=== PATIENT | female | born 1945 ===

== ENCOUNTER 2017-04-17 09:51 | Emergency (ER) | payer MEDICARE ==
[2017-04-17 09:51] VITALS: BMI 19.7
[2017-04-17] MEDS ORDERED: Sodium Chloride 0.9% 1,000 ML IV STA (10:12)
--- NOTE | 2017-04-17 10:24 | ED PDOC ---
Arrival/HPI - General Chief Complaint: Flu-like Symptoms Time Seen by Provider: 04/17/17 10:03 Historian: Patient - History of Present Illness Narrative History of Present Illness (Text): 04/17/17 10:24 71yo female with PMHx of diverticulitis, hypertension and hypercholesterolemia who present with 2days history of general bodyache, fever, cough and generalized weakness. Did not take any medication for her symptoms. Denies sick contact, chest pain, SOB, nausea, vomiting, abdominal pain, any other complaint. She did not take the Flu vaccine. Past Medical History - Provider Review Nursing Documentation Reviewed: Yes - Infectious Disease Hx of Infectious Diseases: None - Tetanus Immunization Tetanus Immunization: Unknown - Cardiac Hx Cardiac Disorders: Yes (mi) Hx Hypertension: Yes Hx Pacemaker: No Other/Comment: angioplasty - Pulmonary Hx Respiratory Disorders: Yes Hx Asthma: Yes Hx Chronic Obstructive Pulmonary Disease (COPD): Yes - Neurological Hx Paralysis: No - HEENT Hx HEENT Disorder: Yes Hx Cataracts: Yes Hx Glaucoma: Yes - Renal Hx Renal Disorder: No - Endocrine/Metabolic Hx Endocrine Disorders: No - Hematological/Oncological Hx Blood Disorders: Yes Hx Blood Transfusions: Yes - Integumentary Hx Dermatological Disorder: No - Musculoskeletal/Rheumatological Hx Musculoskeletal Disorders: No Hx Falls: No - Gastrointestinal Hx Gastrointestinal Disorders: Yes Hx Diverticulitis: Yes - Genitourinary/Gynecological Hx Genitourinary Disorders: Yes (ectopic ) - Psychiatric Hx Psychophysiologic Disorder: No Hx Emotional Abuse: No Hx Physical Abuse: No Hx Substance Use: No - Surgical History Hx Cardiac Catheterization: Yes Hx Coronary Stent: Yes (x6 stents from 2001 to 2005) Other/Comment: Tummy Tuck, tubal ligation, hemorrhoidectomy - Anesthesia Hx Anesthesia: Yes - Suicidal Assessment Feels Threatened In Home Enviroment: No Family/Social History - Physician Review Nursing Documentation Reviewed: Yes Family/Social History: Unknown Family HX Smoking Status: Never Smoked Hx Alcohol Use: No Hx Substance Use: No Hx Substance Use Treatment: No Allergies/Home Meds Allergies/Adverse Reactions: Allergies iodine Allergy (Verified 04/17/17 09:52) RASH shrimp Allergy (Severe, Uncoded 04/17/17 09:52) SWELLING throat gets itchy Home Medications: Home Meds Medication Instructions Recorded Confirmed Aspirin [Aspir 81] 81 mg PO QPM 01/05/12 04/17/17 Montelukast [Singulair] 10 mg PO QPM 01/05/12 04/17/17 Simvastatin 40 mg PO QPM 01/05/12 04/17/17 Budesonide/Formoterol Fumarate 1 aer IH DAILY 08/01/12 04/17/17 [Symbicort 80-4.5 Mcg Inhaler] Dorzolamide 2% [Trusopt] 1 drop OU TID 08/01/12 04/17/17 Brimonidine 0.2% [Alphagan 0.2% 1 drop OU TID 11/24/15 04/17/17 Opht] Clopidogrel [Plavix] 75 mg PO DAILY 07/27/16 04/17/17 Review of Systems - Physician Review All systems were reviewed & negative as marked: Yes - Review of Systems Constitutional: Fatigue Eyes: Normal ENT: Normal Respiratory: Cough. absent: SOB, Sputum, Wheezing Cardiovascular: Normal Gastrointestinal: Normal Genitourinary Female: Normal Musculoskeletal: Normal Skin: Normal Neurological: Normal Endocrine: Normal Hemo/Lymphatic: Normal Psychiatric: Normal Physical Exam Vital Signs Reviewed: Yes Vital Signs Temp Pulse Resp BP Pulse Ox 04/17/17 11:29 100.8 F H 102 H 18 126/64 98 04/17/17 09:59 102.3 F H 126 H 17 128/62 97 Temperature: Febrile Blood Pressure: Normal Pulse: Tachycardic Respiratory Rate: Normal Appearance: Positive for: Well-Appearing, Non-Toxic, Comfortable Pain Distress: None Mental Status: Positive for: Alert and Oriented X 3 - Systems Exam Head: Present: Atraumatic, Normocephalic Pupils: Present: PERRL Extroacular Muscles: Present: EOMI Conjunctiva: Present: Normal Mouth: Present: Moist Mucous Membranes Neck: Present: Normal Range of Motion Respiratory/Chest: Present: Clear to Auscultation, Good Air Exchange. No: Respiratory Distress, Accessory Muscle Use, Wheezes, Decreased Breath Sounds, Rales, Retracting, Rhonchi Cardiovascular: Present: Regular Rate and Rhythm, Normal S1, S2. No: Murmurs Abdomen: Present: Normal Bowel Sounds. No: Tenderness, Distention, Peritoneal Signs Back: Present: Normal Inspection Upper Extremity: Present: Normal Inspection. No: Cyanosis, Edema Lower Extremity: Present: Normal Inspection. No: Edema Neurological: Present: GCS=15, CN II-XII Intact, Speech Normal Skin: Present: Warm, Dry, Normal Color. No: Rashes Psychiatric: Present: Alert, Oriented x 3, Normal Insight, Normal Concentration Medical Decision Making ED Course and Treatment: 04/17/17 11:12 Pt in ED for stated history. she was febirle and tachy on presentation. Antipyretic was given and pt was hydrated. On re evaluation she notes that she feels better. Rapid Flu was positive for type A and she was treated and DC home with Tamiflu. Advised to drink plenty of fluid. To take Tylenol every 6hrs as needed for fever/pain. referred to her PMD. - Lab Interpretations Lab Results: 04/17/17 10:20 Lab Results 04/17/17 10:20: Influenza Typ A,B (EIA) Pos for influenza a H 04/17/17 10:20: PT 12.6 H, INR 1.09 H, APTT 26.3 04/17/17 10:20: WBC 10.9, RBC 3.76, Hgb 12.2, Hct 37.4, MCV 99.5, MCH 32.4, MCHC 32.6, RDW 13.6, Plt Count 245, MPV 10.3, Gran % 77.5 H, Lymph % (Auto) 9.3 L, [place] % (Auto) 7.2 H, Eos % (Auto) 5.4 H, Baso % (Auto) 0.6, Gran # 8.45 H, Lymph # (Auto) 1.0 L, [place] # (Auto) 0.8 H, Eos # (Auto) 0.6, Baso # (Auto) 0.06 - Medication Orders Current Medication Orders: Discontinued Medications Acetaminophen (Tylenol 325mg Tab) 650 mg PO STAT STA Stop: 04/17/17 10:13 Last Admin: 04/17/17 10:37 Dose: 650 mg MAR Pain/Vitals Document 04/17/17 10:37 SF (Rec: 04/17/17 10:37 SF [id number]) Pain Reassessment Is This A Pain ReAssessment? Yes Sleep Is patient sleeping during reassessment? No Presence of Pain Presence of Pain Yes Pain Scale Used Pain Scale Used Numeric Sodium Chloride (Sodium Chloride 0.9%) 1,000 mls @ 999 mls/hr IV .Q1H1M STA Stop: 04/17/17 11:12 Last Admin: 04/17/17 10:37 Dose: 999 mls/hr eMAR Start Stop Document 04/17/17 10:37 SF (Rec: 04/17/17 10:37 SF [id number]) Intravenous Solution Start Date 04/17/17 Start Time 10:37 End Date 04/17/17 End time 11:38 Total Infusion Time 61 Oseltamivir Phosphate (Tamiflu Cap) 75 mg PO ONCE STA PRN Reason: Protocol Stop: 04/17/17 11:10 Last Admin: 04/17/17 11:30 Dose: 75 mg Disposition/Present on Arrival - Present on Arrival Any Indicators Present on Arrival: No History of DVT/PE: No History of Uncontrolled Diabetes: No Urinary Catheter: No History of Decub. Ulcer: No History Surgical Site Infection Following: None - Disposition Have Diagnosis and Disposition been Completed?: Yes Diagnosis: Influenza A Disposition: HOME/ ROUTINE Disposition Time: 11:15 Patient Plan: Discharge Condition: STABLE Discharge Instructions (ExitCare): Flu, Adult (DC) Additional Instructions: Drink plenty of fluid and rest Follow up with your doctor Return to ED for any new or worsening symptoms Prescriptions: Oseltamivir Phosphate [Tamiflu] 75 mg PO BID #10 capsule Referrals: [facility] Ольга Garza, [Non-Staff] - Follow up with primary Mary Roe MD [Primary Care Provider] - Follow up with primary Forms: [employer] (Spanish)
[2017-04-17 10:45] LABS: BASO # 0.06 K/mm3 (0.0-2.0); BASO % 0.6 % (0.0-3.0); EOS # 0.6 (0.0-0.7); EOS % 5.4 % (1.5-5.0); GRAN # 8.45 (1.4-6.5); GRAN % 77.5 % (50.0-68.0); HEMOGLOBIN 12.2 g/dL (12.0-16.0); LYMPH % 9.3 % (22.0-35.0); MEAN CELL VOLUME 99.5 fl (80.0-105.0); MEAN CORPUSCULAR HEMOGLOBIN 32.4 pg (25.0-35.0); MEAN CORPUSCULAR HGB CONC 32.6 g/dl (31.0-37.0); MEAN PLATELET VOLUME 10.3 fl (7.0-11.0); MONO # 0.8 (0.1-0.6); MONO % 7.2 % (1.0-6.0); RBC 3.76 10^6/uL (3.5-6.1); RED CELL DISTRIBUTION WIDTH 13.6 % (11.5-14.5); WHITE BLOOD COUNT 10.9 10^3/ul (4.5-11.0)
[2017-04-17 10:53] LABS: INR 1.09 (0.93-1.08); PARTIAL THROMBOPLASTIN TIME 26.3 Seconds (25.1-36.5); PROTHROMBIN TIME 12.6 SECONDS (9.4-12.5)
[2017-04-17 11:30] VITALS: BP 126/64; PULSE 102; RESP 18; TEMP 100.8; O2SAT 98
== END 2017-04-17 11:34 | disposition home or self-care (01) ==
LOC: ED 09:51
DX: J10.1 Influenza due to other identified influenza virus with other respiratory manifestations (principal); I10 Essential (primary) hypertension; E78.00 Pure hypercholesterolemia, unspecified
CPT/HCPCS: 85025; 85610; 85730; 87804; 96360; 99284; J7040

== ENCOUNTER 2017-04-18 17:17 | Emergency (ER) | payer MEDICARE ==
[2017-04-18 17:20] VITALS: BMI 20.1
--- NOTE | 2017-04-18 17:39 | ED PDOC ---
Arrival/HPI - General Chief Complaint: Syncope Time Seen by Provider: 04/18/17 17:27 Historian: Patient - History of Present Illness Narrative History of Present Illness (Text): 04/18/17 17:39 A 71 year old female, whose past medical history includes hypertension, hyperlipidemia, asthma and CAD with stents, presents to the emergency department accompanied by family after a syncopal episode earlier today. Patient reports while in the bathroom she felt dizzy and passed out falling backwards. She notes injuring her lower back. Patient was recently seen in the emergency room yesterday and diagnosed with the flu. Patient denies any other injuries, head trauma, headache, neck pain, abdominal pain, chest pain, shortness of breath or any other complaints. PMD: Dr. Roe Time/Duration: Other (today) Context: Home Past Medical History - Provider Review Nursing Documentation Reviewed: Yes - Infectious Disease Hx of Infectious Diseases: None - Tetanus Immunization Tetanus Immunization: Unknown - Cardiac Hx Cardiac Disorders: Yes (mi) Hx Hypertension: Yes Hx Pacemaker: No Other/Comment: angioplasty - Pulmonary Hx Respiratory Disorders: Yes Hx Asthma: Yes Hx Chronic Obstructive Pulmonary Disease (COPD): Yes - Neurological Hx Paralysis: No - HEENT Hx HEENT Disorder: Yes Hx Cataracts: Yes Hx Glaucoma: Yes - Renal Hx Renal Disorder: No - Endocrine/Metabolic Hx Endocrine Disorders: No - Hematological/Oncological Hx Blood Disorders: Yes Hx Blood Transfusions: Yes - Integumentary Hx Dermatological Disorder: No - Musculoskeletal/Rheumatological Hx Musculoskeletal Disorders: No Hx Falls: No - Gastrointestinal Hx Gastrointestinal Disorders: Yes Hx Diverticulitis: Yes - Genitourinary/Gynecological Hx Genitourinary Disorders: Yes (ectopic ) - Psychiatric Hx Psychophysiologic Disorder: No Hx Emotional Abuse: No Hx Physical Abuse: No Hx Substance Use: No - Surgical History Hx Cardiac Catheterization: Yes Hx Coronary Stent: Yes (x6 stents from 2001 to 2005) Other/Comment: Tummy Tuck, tubal ligation, hemorrhoidectomy - Anesthesia Hx Anesthesia: Yes - Suicidal Assessment Feels Threatened In Home Enviroment: No Family/Social History - Physician Review Nursing Documentation Reviewed: Yes Family/Social History: No Known Family HX Smoking Status: Never Smoked Hx Alcohol Use: No Hx Substance Use: No Hx Substance Use Treatment: No Allergies/Home Meds Allergies/Adverse Reactions: Allergies iodine Allergy (Verified 04/18/17 17:20) RASH shrimp Allergy (Severe, Uncoded 04/18/17 17:20) SWELLING throat gets itchy Home Medications: Home Meds Medication Instructions Recorded Confirmed Aspirin [Aspir 81] 81 mg PO QPM 01/05/12 04/18/17 Montelukast [Singulair] 10 mg PO QPM 01/05/12 04/18/17 Simvastatin 40 mg PO QPM 01/05/12 04/18/17 Budesonide/Formoterol Fumarate 1 aer IH DAILY 08/01/12 04/18/17 [Symbicort 80-4.5 Mcg Inhaler] Dorzolamide 2% [Trusopt] 1 drop OU TID 08/01/12 04/18/17 Brimonidine 0.2% [Alphagan 0.2% 1 drop OU TID 11/24/15 04/18/17 Opht] Clopidogrel [Plavix] 75 mg PO DAILY 07/27/16 04/18/17 Review of Systems - Physician Review All systems were reviewed & negative as marked: Yes - Review of Systems Respiratory: absent: SOB Cardiovascular: Syncope. absent: Chest Pain Gastrointestinal: absent: Abdominal Pain Musculoskeletal: Back Pain. absent: Neck Pain Neurological: Dizziness. absent: Headache Physical Exam Vital Signs Reviewed: Yes Vital Signs Temp Pulse Resp BP Pulse Ox 04/18/17 19:18 98.9 F 88 16 131/73 100 04/18/17 17:45 98.6 F 86 18 119/68 97 Temperature: Afebrile Blood Pressure: Normal Pulse: Regular Respiratory Rate: Normal Appearance: Positive for: Non-Toxic, Comfortable, Other (Thin and frail female, appears weak and mildly dehydrated) Pain Distress: None Mental Status: Positive for: Alert and Oriented X 3, other (fatigued) Finger Stick Blood Glucose: 109 - Systems Exam Head: Present: Atraumatic, Normocephalic Pupils: Present: PERRL Extroacular Muscles: Present: EOMI Conjunctiva: Present: Normal Mouth: Present: Dry Pharnyx: Present: Normal. No: ERYTHEMA, EXUDATE, TONSILS ENLARGED Neck: Present: Normal Range of Motion Respiratory/Chest: Present: Clear to Auscultation (in all lung mendez), Good Air Exchange. No: Respiratory Distress, Accessory Muscle Use Cardiovascular: Present: Regular Rate and Rhythm, Normal S1, S2. No: Murmurs Abdomen: Present: Normal Bowel Sounds. No: Tenderness, Distention, Peritoneal Signs, Rebound, Guarding Back: Present: Other (Area of bruising to right upper back with tenderness to palpation) Upper Extremity: Present: Normal Inspection. No: Cyanosis, Edema Lower Extremity: Present: Normal Inspection. No: Edema Neurological: Present: GCS=15, CN II-XII Intact, Speech Normal, Motor Func Grossly Intact, Normal Sensory Function, Other (no focal neurological deficits) . No: Gait Normal (requires assitance to ambulate) Skin: Present: Warm, Dry, Normal Color. No: Rashes Psychiatric: Present: Alert, Oriented x 3, Normal Insight, Normal Concentration , Other (fatigued) Medical Decision Making ED Course and Treatment: 04/18/17 17:39 Impression: A 71 year old female brought in after syncopal episode and fall. Patient notes back pain. Recently diagnosed with the flu. Plan: -- Right ribs xray -- EKG -- Labs -- Tylenol and IV fluids -- Reassess and disposition Progress Notes: 04/18/17 20:34 awake and alert; significantly improved.ambulatory. x-rays neg - Lab Interpretations Lab Results: 04/18/17 17:50 04/18/17 17:50 Lab Results 04/18/17 17:50: Sodium 139, Potassium 3.4 L, Chloride 99, Carbon Dioxide 27, Anion Gap 17, BUN 23 H, Creatinine 0.8, Est GFR ( Amer) > 60, Est GFR ( Non-Af Amer) > 60, Random Glucose 112 H, Calcium 9.3, Total Bilirubin 0.4, AST 40 H, ALT 28, Alkaline Phosphatase 76, Total Protein 8.2, Albumin 4.2, Globulin 4.0, Albumin/Globulin Ratio 1.0 L 04/18/17 17:50: WBC 9.3, RBC 3.81, Hgb 12.4, Hct 37.3, MCV 97.9, MCH 32.5, MCHC 33.2, RDW 13.9, Plt Count 241, MPV 10.7, Gran % 76.6 H, Lymph % (Auto) 13.6 L, [place] % (Auto) 9.2 H, Eos % (Auto) 0.3 L, Baso % (Auto) 0.3, Gran # 7.11 H, Lymph # (Auto) 1.3, [place] # (Auto) 0.9 H, Eos # (Auto) 0.0, Baso # (Auto) 0.03 I have reviewed the lab results: Yes - RAD Interpretation Radiology Orders: 04/18/17 17:40 RIBS RIGHT [RAD] Stat - Medication Orders Current Medication Orders: Discontinued Medications Acetaminophen (Tylenol 325mg Tab) 650 mg PO STAT STA Stop: 04/18/17 17:42 Last Admin: 04/18/17 17:57 Dose: 650 mg Sodium Chloride (Sodium Chloride 0.9%) 500 mls @ 999 mls/hr IV .Q31M STA Stop: 04/18/17 18:11 Last Admin: 04/18/17 17:57 Dose: 999 mls/hr eMAR Start Stop Document 04/18/17 17:57 CNR (Rec: 04/18/17 17:57 CNR [id number]) Intravenous Solution Start Date 04/18/17 Start Time 17:57 Sodium Chloride (Sodium Chloride 0.9%) 500 mls @ 999 mls/hr IV .Q31M STA Stop: 04/18/17 19:39 Last Admin: 04/18/17 19:18 Dose: 999 mls/hr eMAR Start Stop Document 04/18/17 19:18 AB (Rec: 04/18/17 19:19 AB [id number]) Intravenous Solution Start Date 04/18/17 Start Time 19:18 End Date 04/18/17 End time 19:48 Total Infusion Time 30 Potassium Chloride (K-Dur 20 Meq Er Tab) 20 meq PO STAT STA Stop: 04/18/17 19:02 Last Admin: 04/18/17 19:18 Dose: 20 meq Disposition/Present on Arrival - Present on Arrival Any Indicators Present on Arrival: No History of DVT/PE: No History of Uncontrolled Diabetes: No Urinary Catheter: No History of Decub. Ulcer: No History Surgical Site Infection Following: None - Disposition Have Diagnosis and Disposition been Completed?: Yes Diagnosis: Syncope and collapse, Influenza A Disposition: HOME/ ROUTINE Disposition Time: 20:40 Patient Plan: Discharge Condition: STABLE Discharge Instructions (ExitCare): Syncope (ED) Referrals: Mary Roe MD [Primary Care Provider] - Follow up with primary Forms: [employer] ([employer])
[2017-04-18] MEDS ORDERED: Sodium Chloride 0.9% 500 ML IV STA ×2 (17:41→19:09)
[2017-04-18 18:06] LABS: BASO # 0.03 K/mm3 (0.0-2.0); BASO % 0.3 % (0.0-3.0); EOS % 0.3 % (1.5-5.0); GRAN # 7.11 (1.4-6.5); GRAN % 76.6 % (50.0-68.0); HEMOGLOBIN 12.4 g/dL (12.0-16.0); LYMPH # 1.3 (1.2-3.4); LYMPH % 13.6 % (22.0-35.0); MEAN CELL VOLUME 97.9 fl (80.0-105.0); MEAN CORPUSCULAR HEMOGLOBIN 32.5 pg (25.0-35.0); MEAN CORPUSCULAR HGB CONC 33.2 g/dl (31.0-37.0); MEAN PLATELET VOLUME 10.7 fl (7.0-11.0); MONO # 0.9 (0.1-0.6); MONO % 9.2 % (1.0-6.0); RBC 3.81 10^6/uL (3.5-6.1); RED CELL DISTRIBUTION WIDTH 13.9 % (11.5-14.5); WHITE BLOOD COUNT 9.3 10^3/ul (4.5-11.0)
[2017-04-18 18:10] LABS: ALBUMIN 4.2 g/dL (3.0-4.8); ALT/SGPT 28 U/L (7-56); AST/SGOT 40 U/L (14-36); BLOOD UREA NITROGEN 23 mg/dL (7-21); CALCIUM 9.3 mg/dL (8.4-10.5); GFR AFRICAN-AMERICAN > 60; GFR NON-AFRICAN AMERICAN > 60
[2017-04-18] MEDS ORDERED: Potassium Chloride 20 mEq ER Tab PO STA (19:01)
[2017-04-18 20:22] VITALS: RESP 16
[2017-04-18 21:31] VITALS: BP 121/80; PULSE 80; TEMP 98.2; O2SAT 99
--- NOTE | 2017-04-19 11:12 | RAD ---
PROCEDURE: Right ribs HISTORY: fall COMPARISON: TECHNIQUE: Three views FINDINGS: There is no evidence of displaced rib fracture or pneumothorax IMPRESSION: Negative study
--- NOTE | 2017-04-19 22:42 | CARD ---
APPROVED REPORT EKG Measurement Heart [id number] <Conclusion> Normal sinus rhythm Right atrial enlargement Borderline ECG
== END 2017-04-18 21:31 | disposition home or self-care (01) ==
LOC: ED 17:17
DX: J09.X2 Influenza due to identified novel influenza A virus with other respiratory manifestations (principal); R55 Syncope and collapse; I10 Essential (primary) hypertension; I25.10 Atherosclerotic heart disease of native coronary artery without angina pectoris; E78.5 Hyperlipidemia, unspecified; Z95.5 Presence of coronary angioplasty implant and graft
CPT/HCPCS: 71100; 80053; 85025; 93005; 99285; J7040

== ENCOUNTER 2018-05-20 13:33 | Observation (INO) | payer MEDICARE ==
[2018-05-20 13:43] VITALS: BMI 19.5
--- NOTE | 2018-05-20 14:09 | ED PDOC ---
Arrival/HPI - General Historian: Patient - History of Present Illness Narrative History of Present Illness (Text): 05/20/18 14:09 72 year old female, whose past medical history includes hypertension, hyperlipidemia, asthma and CAD with stents, presents to the emergency department accompanied by family complaining of chest discomfort and headache that began today. Patient describes the chest discomfort as a pressure like sensation, but non-radiating. Patient reports she checked her blood pressure and noted that it was elevated, so she went to go see her PMD where she began developing chest discomfort. Patient's PMD Dr. Roe sent patient to the ER for evaluation. Patient takes aspirin daily, but ran out. Patient denies any fever, chills, shortness of breath, nausea, vomiting, diarrhea, urinary symptoms, back pain, neck pain, dizziness, or any other complaints. PMD: Dr. Roe Symptom Onset: Gradual Symptom Course: Unchanged Activities at Onset: Light Context: Home Past Medical History - Provider Review Nursing Documentation Reviewed: Yes - Infectious Disease Hx of Infectious Diseases: None - Tetanus Immunization Tetanus Immunization: Unknown - Cardiac Hx Cardiac Disorders: Yes - Pulmonary Hx Respiratory Disorders: Yes Hx Asthma: Yes Hx Chronic Obstructive Pulmonary Disease (COPD): Yes - Neurological Hx Paralysis: No - HEENT Hx HEENT Disorder: Yes Hx Cataracts: Yes Hx Glaucoma: Yes - Renal Hx Renal Disorder: No - Endocrine/Metabolic Hx Endocrine Disorders: No - Hematological/Oncological Hx Blood Disorders: Yes Hx Blood Transfusions: Yes - Integumentary Hx Dermatological Disorder: No - Musculoskeletal/Rheumatological Hx Musculoskeletal Disorders: No Hx Falls: No - Gastrointestinal Hx Gastrointestinal Disorders: Yes Hx Diverticulitis: Yes - Genitourinary/Gynecological Hx Genitourinary Disorders: Yes (ectopic ) - Psychiatric Hx Psychophysiologic Disorder: No Hx Emotional Abuse: No Hx Physical Abuse: No Hx Substance Use: No - Surgical History Hx Cardiac Catheterization: Yes Hx Coronary Stent: Yes (x6 stents from 2001 to 2005) Other/Comment: Tummy Tuck, tubal ligation, hemorrhoidectomy - Anesthesia Hx Anesthesia: Yes - Suicidal Assessment Feels Threatened In Home Enviroment: No Family/Social History - Physician Review Nursing Documentation Reviewed: Yes Family/Social History: No Known Family HX Smoking Status: Never Smoked Hx Alcohol Use: No Hx Substance Use: No Hx Substance Use Treatment: No Allergies/Home Meds Allergies/Adverse Reactions: Allergies iodine Allergy (Verified 05/20/18 14:08) RASH shrimp Allergy (Severe, Uncoded 05/20/18 14:08) SWELLING throat gets itchy Home Medications: Home Meds Medication Instructions Recorded Confirmed Aspirin [Aspir 81] 81 mg PO QPM 01/05/12 05/20/18 Montelukast [Singulair] 10 mg PO QPM 01/05/12 05/20/18 Simvastatin 40 mg PO QPM 01/05/12 05/20/18 Budesonide/Formoterol Fumarate 1 aer IH DAILY 08/01/12 05/20/18 [Symbicort 80-4.5 Mcg Inhaler] Brimonidine 0.2% [Alphagan 0.2% 1 drop OU TID 11/24/15 05/20/18 Opht] Clopidogrel [Plavix] 75 mg PO DAILY 07/27/16 05/20/18 Review of Systems - Physician Review All systems were reviewed & negative as marked: Yes - Review of Systems Constitutional: absent: Fevers, Other (chills) Respiratory: absent: SOB Cardiovascular: Chest Pain Gastrointestinal: absent: Diarrhea, Nausea, Vomiting Genitourinary Female: absent: Dysuria, Frequency, Hematuria Musculoskeletal: absent: Back Pain, Neck Pain Neurological: Headache. absent: Dizziness Physical Exam Vital Signs Reviewed: Yes Temperature: Afebrile Blood Pressure: Hypertensive Pulse: Regular Respiratory Rate: Normal Appearance: Positive for: Well-Appearing, Non-Toxic, Comfortable Pain Distress: None Mental Status: Positive for: Alert and Oriented X 3 - Systems Exam Head: Present: Atraumatic, Normocephalic Pupils: Present: PERRL Extroacular Muscles: Present: EOMI Conjunctiva: Present: Normal Mouth: Present: Moist Mucous Membranes Neck: Present: Normal Range of Motion Respiratory/Chest: Present: Clear to Auscultation, Good Air Exchange. No: Respiratory Distress, Accessory Muscle Use Cardiovascular: Present: Regular Rate and Rhythm, Normal S1, S2. No: Murmurs Abdomen: No: Tenderness, Distention, Peritoneal Signs Back: Present: Normal Inspection Upper Extremity: Present: Normal Inspection. No: Cyanosis, Edema Lower Extremity: Present: Normal Inspection. No: Edema Neurological: Present: GCS=15, Speech Normal Skin: Present: Warm, Dry, Normal Color. No: Rashes Psychiatric: Present: Alert, Oriented x 3, Normal Insight, Normal Concentration Medical Decision Making ED Course and Treatment: 05/20/18 14:09 Impression: 72 year old female presents complaining of chest pressure, elevated blood pressure, and headache that began today. Plan: -- EKG -- Labs -- Chest X-ray -- Reassess and disposition Prior Visits: Notes and results from previous visits were reviewed. Progress Notes: EKG shows NSR at 97 BPM with normal axis and normal intervals. Interpreted by me. Chest X-ray Dictator : Filomena Mcdowell MD Report Date : 05/20/2018 15:06:46 IMPRESSION: No active pulmonary disease. 05/20/18 15:[address] Roe who is aware and agrees with the plan. Accepts patient into her service. - Lab Interpretations I have reviewed the lab results: Yes - RAD Interpretation Radiology Orders: 05/20/18 13:50 CHEST PORTABLE [RAD] Stat Book Coverer: Radiologist - EKG Interpretation Interpreted by ED Physician: Yes Type: 12 lead EKG - Scribe Statement The provider has reviewed the documentation as recorded by the Karli Wilson Provider Scribe Attestation: All medical record entries made by the Johnibe were at my direction and personally dictated by me. I have reviewed the chart and agree that the record accurately reflects my personal performance of the history, physical exam, medical decision making, and the department course for this patient. I have also personally directed, reviewed, and agree with the discharge instructions and disposition. Disposition/Present on Arrival - Present on Arrival Any Indicators Present on Arrival: No History of DVT/PE: No History of Uncontrolled Diabetes: No Urinary Catheter: No History Surgical Site Infection Following: None - Disposition Have Diagnosis and Disposition been Completed?: Yes Diagnosis: Chest pain Disposition: HOSPITALIZED Disposition Time: 15:25 Condition: STABLE
[2018-05-20 14:36] LABS: BASO # 0.05 K/mm3 (0.0-2.0); BASO % 0.5 % (0.0-3.0); EOS # 2.9 (0.0-0.7); EOS % 31.2 % (1.5-5.0); HEMOGLOBIN 12.4 g/dL (12.0-16.0); LYMPH # 2.1 (1.2-3.4); MEAN CELL VOLUME 98.2 fl (80.0-105.0); MEAN CORPUSCULAR HEMOGLOBIN 31.4 pg (25.0-35.0); MEAN PLATELET VOLUME 10.2 fl (7.0-11.0); MONO # 0.6 (0.1-0.6); MONO % 6.4 % (1.0-6.0); PLATELET COUNT 273 10^3/uL (120.0-450.0); RBC 3.95 10^6/uL (3.5-6.1); RED CELL DISTRIBUTION WIDTH 13.3 % (11.5-14.5); WHITE BLOOD COUNT 9.2 10^3/uL (4.5-11.0)
[2018-05-20 14:51] LABS: ALB/GLOB RATIO 0.9 (1.1-1.8); ALBUMIN 3.9 g/dL (3.0-4.8); ALT/SGPT 14 U/L (7-56); AST/SGOT 24 U/L (14-36); BLOOD UREA NITROGEN 16 mg/dL (7-21); CALCIUM 9.3 mg/dL (8.4-10.5); GFR NON-AFRICAN AMERICAN > 60
[2018-05-20 15:02] LABS: ANISOCYTOSIS SLIGHT; ATYPICAL LYMPHOCYTE 2 % (0.0-0.0); BAND 1 % (0-2); BASOPHIL 1 % (0.0-1.0); EOSINOPHIL 22 % (0.0-3.0); LYMPHOCYTE 26 % (22.0-35.0); MONOCYTE 4 % (1.0-6.0); NEUTROPHIL 44 % (50.0-70.0); PLATELET ESTIMATE NORMAL (NORMAL)
[2018-05-20 15:03] LABS: B-TYPE NATRIURETIC PEPTIDE 144 pg/mL (0-450); TOXIC GRANULATION SLIGHT; TROPONIN I < 0.01 ng/mL
--- NOTE | 2018-05-20 15:10 | RAD ---
Date of service: 05/20/2018 HISTORY: Chest pain COMPARISON: 11/15/2017. FINDINGS: LUNGS: The lungs are well inflated and clear. There are fibrotic changes in the left upper lobe PLEURA: No pleural effusions or pneumothorax. CARDIOVASCULAR: The heart is normal in size. No aortic atherosclerotic calcifications present. OSSEOUS STRUCTURES: Within normal limits for the patient's age. VISUALIZED UPPER ABDOMEN: Normal. OTHER FINDINGS: None. IMPRESSION: No active pulmonary disease.
--- NOTE | 2018-05-20 19:19 | CARD ---
APPROVED REPORT Date of service: 05/20/2018 EKG Measurement Heart [id number] <Conclusion> Normal sinus rhythm Normal ECG
[2018-05-20] MEDS ORDERED: Albuterol 0.083% Inhal Sol (2.5 mg/3 mL) UD IH PRN (20:20)
[2018-05-20 20:43] LABS: IRON 102 ug/dL (45-180)
[2018-05-20 20:51] LABS: TOTAL IRON BINDING CAPACITY 300 ug/dL (265-497)
[2018-05-20 20:58] LABS: % IRON SATURATION 34 % (20-55)
[2018-05-20 21:55] LABS: HDL CHOLESTEROL 56 mg/dL (29-60)
--- NOTE | 2018-05-20 22:05 | CP.PCM.PCO ---
Addendum Addendum: 05/20/18 22:04 STAT doses of Home Lopressor and Zestril given for night dose, SBP in 170s CK PGY1
[2018-05-20 22:06] LABS: LDL CHOLESTEROL 148 mg/dL (0-129); TROPONIN I < 0.01 ng/mL
[2018-05-21 00:03] VITALS: RESP 20
[2018-05-21 06:19] VITALS: BP 143/82; TEMP 97.9; O2SAT 96
[2018-05-21 06:27] LABS: HEMOGLOBIN 12.7 g/dL (12.0-16.0); MEAN CORPUSCULAR HEMOGLOBIN 31.9 pg (25.0-35.0); MEAN CORPUSCULAR HGB CONC 32.2 g/dl (31.0-37.0); MEAN PLATELET VOLUME 10.1 fl (7.0-11.0); RBC 3.98 10^6/uL (3.5-6.1); RED CELL DISTRIBUTION WIDTH 13.3 % (11.5-14.5); WHITE BLOOD COUNT 9.7 10^3/uL (4.5-11.0)
[2018-05-21 07:05] LABS: BLOOD UREA NITROGEN 25 mg/dL (7-21); CALCIUM 9.4 mg/dL (8.4-10.5); GFR NON-AFRICAN AMERICAN > 60
[2018-05-21 09:54] LABS: TROPONIN I < 0.01 ng/mL
[2018-05-21 13:11] LABS: FOLATE 11.3 ng/mL
[2018-05-21] MEDS ORDERED: Albuterol-Ipratrop 3 mg / 0.5 (3 ml) UD IH PRN (13:44)
[2018-05-21] MEDS ORDERED: Petrolatum Oint Foilpak (5 gm) TOP SCH (14:00)
--- NOTE | 2018-05-21 14:56 | CON ---
DATE: 05/21/2018 PULMONARY CONSULT NOTE REFERRING PHYSICIAN: Mary Roe MD REASON FOR CONSULT: Asthma and sleep apnea. HISTORY OF PRESENT ILLNESS: This is a 72-year-old female with past medical history significant for hypertension, hyperlipidemia, asthma, coronary artery disease with stents who presented to the emergency room complaining of chest discomfort and headache. The patient reported chest discomfort as pressure like, but not radiating, also noted that she had elevated blood pressure associated with chest discomfort and headache. The patient states that she went to the primary care physician who sent her to the emergency room for evaluation. The patient also reports having some nasal congestion post nasal drip. Today the patient seen and states that she no longer has the chest discomfort or headache. PAST MEDICAL HISTORY: Chronic obstructive lung disease, coronary artery disease, history of coronary stents, hypertension, hyperlipidemia, asthma and obstructive sleep apnea syndrome. SOCIAL HISTORY: No EtOH abuse. No illicit drug use. Nonsmoker. FAMILY HISTORY: No significant cardiopulmonary disease reported. ALLERGIES: IODINE AND SHRIMP. MEDICATIONS: Reviewed. Albuterol 2.5 mg inhalation every 6 hours p.r.n., aspirin 81 mg in the evening, Lipitor 40 mg in the evening, Plavix 75 mg daily, lisinopril 10 mg daily, Claritin 10 mg daily, Lopressor 25 mg twice a day, Singulair 10 mg in the evening, Alphagan eye drop three times a day and Symbicort inhaler daily. REVIEW OF SYSTEMS: No headache, chest pain, abdominal pain, nausea, vomiting, diarrhea, leg pain or leg swelling reported. The patient no coughing, no shortness of breath at this time. The patient does report having both nasal drip, some nasal congestion. PHYSICAL EXAMINATION GENERAL: No acute distress. VITAL SIGNS: Blood pressure 143/82, pulse 71, temperature 97.9 and oxygen saturation 96% on room air. HEENT: Moist mucous membranes. Small oral cavity. Mallampati score of 4. NECK: Supple. No JVD. No facial tenderness. RESPIRATORY: Fair airflow bilaterally. CARDIOVASCULAR: S1 and S2. ABDOMEN: Soft and nontender. No distension. No organomegaly. EXTREMITIES: No bilateral lower extremity edema. NEUROLOGIC: Awake, alert and verbal. Following commands. LABORATORY DATA: Reviewed. WBC 9.7, RBC 3.98, hemoglobin 12.7, hematocrit 39.4 and platelets 290. Sodium 141, potassium 4.2, chloride 105, carbon dioxide 29, anion gap 12, BUN 25, creatinine 0.8, GFR greater than 60, random glucose 89 and calcium 9.4. Hemoglobin A1c 6.0. Iron 102, TIBC 300 and percent saturation 34. Lactate dehydrogenase 537 and total creatine kinase 77. Troponin less than 0.01. Triglycerides 156, cholesterol 270, LDL cholesterol 149 and HDL cholesterol 56. Vitamin B12 of 336, folate 11.3 and TSH 1.62. Chest x-ray shows no active pulmonary disease, shows fibrotic changes in the left upper lobe. EKG shows normal sinus rhythm. Echocardiogram report pending. IMPRESSION AND PLAN: The patient admitted with nonspecific chest pain, headache, has history of coronary artery disease status post stent placement, hypertension, hyperlipidemia, asthma and obstructive sleep apnea syndrome. We will discontinue Symbicort and start the patient on Brovana and Pulmicort with p.r.n. DuoNeb. We will place the patient on Protonix for gastric prophylaxis. We will place the patient on deep venous thrombosis prophylaxis. We will place the patient on continuous positive airway pressure at 7 cm with 30% oxygen while sleeping. We will add Flonase nasal spray to bilateral nostrils at bedtime. We will add normal saline to bilateral nostrils. We will start the patient on prednisone 20 mg daily and doxycycline twice a day for sinusitis. We will followup with echocardiogram report when it is available. Continue antihistamine and leukotriene inhibitors. Recommend the patient followup as outpatient for full pulmonary function test as well as followup for sleep apnea syndrome. This patient was seen and examined with Dr. Hall. Discussed assessment and plan as described above. This patient was seen and examined with Scott Harvey, nurse practitioner. Discussed assessment and plan as described above. Thank you for this consult. We will follow with you. Scott Harvey APN Tre Hall MD
[2018-05-21] MEDS: BRIMONIDINE 0.2% OU SCH (15:19)
[2018-05-21 16:39] VITALS: PULSE 72
--- NOTE | 2018-05-21 19:19 | CON ---
DATE: 05/20/2018 REASON FOR CONSULTATION: Followup cardiac evaluation, admitted with uncontrolled hypertension, chest pain, history of coronary artery disease, history of multiple stents. BRIEF CLINICAL HISTORY: This is a 72-year-old female with past medical history significant for hypertension, hyperlipidemia, asthma, history of multiple stents, came to the emergency room. The patient has uncontrolled hypertension, seen by Dr. Roe, and was sent to the ER. The patient also complains of some pressure of chest, which is completely relieved. Denies any further episodes of chest pain, shortness of breath, or any palpitation. PAST MEDICAL HISTORY: Significant for coronary artery disease, as mentioned, history of six stents, last stent was done in [place] 10 to 12 years ago, history of asthma, history of COPD, history of hypertension and hyperlipidemia. PREVIOUS CARDIAC WORKUP: As follows; previous stress test in 2011, ejection fraction 72%. The patient has an echocardiography done dated 11/25/2015, that revealed normal chamber size, ejection fraction 55% to 60%, mild tricuspid regurgitation, RV systolic pressure 32, [id number] MR, mild aortic stenosis. History of a stress test on 07/27/2016, that shows essentially abnormal myocardial perfusion study, ejection fraction 62% with fixed defect. No reversible ischemia. The patient had a PTCA done of mid LAD on 11/25/2015, with reduction of stenosis from 99% to 0%. The last stress was done in 2015, from the left radial approach. Following that stress test in a year ago, the patient had a stress test done in 2016, that was a normal myocardial perfusion study. Cardiac catheterization on 11/21/2015, revealed as follows; coronary anatomy is right-sided dominant, left main medium sized vessel without any significant disease, bifurcates into LAD and complex, the LAD has a 99% stenosis in the mid segment, the circumflex without any significant disease, the right coronary artery has 30% stenosis, LV gram shows ejection fraction 35% to 40%, end-diastolic pressure 18 to 20. The patient underwent subsequently PTCA of LAD with reduction of stenosis from 99% to 0%, medical treatment recommended, dated 11/21/2015. Following that, the patient had a stress as mentioned that was negative on 07/27/2016. EKG yesterday revealed essentially normal EKG. SOCIAL HISTORY: Denies smoking. Denies any history of alcohol abuse. CURRENT MEDICATIONS: The patient is taking simvastatin 40 mg daily, aspirin 81 mg daily, lisinopril 2.5 mg daily, 5 mg daily, Singulair 10 mg daily, metoprolol tartrate 25 mg p.o. b.i.d. REVIEW OF SYSTEMS: As per HPI. PHYSICAL EXAMINATION GENERAL: Height of the patient 5 feet 2 inches, weight of the patient 107 pounds, body mass index 19.6 kg/m2. VITAL SIGNS: Temperature afebrile, heart is 71, blood pressure 143/82. HEENT: PERRLA. Extraocular muscles intact. NECK: Supple. No carotid or thyromegaly. CHEST: Clear to auscultation. HEART: S1 and S2 regular. ABDOMEN: Soft. EXTREMITIES: Clubbing and cyanosis, negative. LABORATORY DATA: Blood workup as follows; WBC 9.7, hemoglobin 12.3, hematocrit 39.4, platelet count 290. Chemistry shows sodium 141, potassium 4.2, chloride 105, carbon dioxide 29, anion gap of 12, BUN 25, creatinine 0.8. EKG shows normal sinus rhythm, within normal limits. ASSESSMENT: A 72-year-old female with past medical history of significant for coronary artery disease, status post seven stents, six stents was done in [place], last stent was done in [facility] with reduction of stenosis from 99% mid left anterior descending to 0% in 10/2015, who admitted yesterday with uncontrolled hypertension and mild chest discomfort, admitting blood pressure of the patient is significantly elevated 170/80, now the pressure is stable. The patient's complaint is chest pain free, so far troponin remains negative. RECOMMENDATIONS: We will add 3rd sets of the troponin in the morning, also get lipid, TSH and hemoglobin A1c, we will get echo. If troponin remains negative, possible discharge home, followup as outpatient stress test. I discussed with the patient. Followup troponin. Followup lipid profile. Aggressive medical treatment for now. Resume all previous medications including the blood pressure. We will give lisinopril to 10 mg from today. Continue aspirin, continue atorvastatin. Today, just now added on LDL shows elevated 148, so we will increase atorvastatin to 40 mg daily and repeat lipid profile as tolerated and the goal would be to keep LDL less than 70 because the patient has multiple stents, if not then go up to the 80 mg of atorvastatin and if the patient can tolerate consider Repatha to achieve the goal of LDL 70 or below. As mentioned on the third sets if the troponin remains negative, the patient can be discharged home and followup stress test as an outpatient. We will follow with you. Thank you Dr. Roe for providing us the opportunity in taking care of the patient, Abeba Bose. Tre Cerrato MD
[2018-05-21] MEDS ORDERED: Budesonide 0.5 mg/2 ml Inhal Susp UD IH SCH (20:00)
[2018-05-21] MEDS ORDERED: Arformoterol 15 mcg/2 ml Inh Sol IH SCH (20:00)
--- NOTE | 2018-05-21 20:01 | CARD ---
APPROVED REPORT Date of service: 05/21/2018 EXAM: Two-dimensional and M-mode echocardiogram with Doppler and color Doppler. INDICATION Chest Pain 2D DIMENSIONS Left Atrium (2D)2.9 (1.6-4.0cm)IVSd1.0 (0.7-1.1cm) LVDd3.9 (3.9-5.9cm)PWd0.9 (0.7-1.1cm) LVDs2.5 (2.5-4.0cm)FS (%) 35.9 % LVEF (%)66.2 (>50%) M-Mode DIMENSIONS Aortic Root2.00 (2.2-3.7cm)Aortic Cusp Exc.0.60 (1.5-2.0cm) Aortic Valve AoV Peak Dzkjfvqd208.0cm/[place] Peak GR.8mmHg Mitral Valve MV E Dremtmnv52.2cm/sMV A Vebswhfy52.1cm/sE/A ratio0.8 TDI E/Lateral E'0.0E/Medial E'0.0 Tricuspid Valve TR Peak Ixqanzpa805zy/sRAP [id number] Peak Gr.23mmHg [id number] LEFT VENTRICLE The left ventricle is normal size. There is normal left ventricular wall thickness. The left ventricular function is normal.Ef-65% There is normal LV segmental wall motion. Transmitral Doppler flow pattern is Grade III-reversible restrictive diastolic dysfunction. No left ventricle thrombus noted on this study. There is no ventricular septal defect visualized. There is no left ventricular aneurysm. There is no mass noted in the left ventricle. RIGHT VENTRICLE The right ventricle is normal size. There is normal right ventricular wall thickness. The right ventricular systolic function is normal. ATRIA The left atrium size is normal. The right atrium size is normal. The interatrial septum is intact with no evidence for an atrial septal defect. AORTIC VALVE The aortic valve is calcified and displays decreased opening. There is trace aortic regurgitation. There is mild valvular aortic stenosis. Non coronary cusp is Immobile There is no aortic valvular vegetation. MITRAL VALVE The mitral valve is thickened but opens well. Mitral annular calcification is moderate. Mitral regurgitation is mild to moderate. There is no mitral valve stenosis. There is no evidence of mitral valve prolapse. TRICUSPID VALVE The tricuspid valve leaflets are thickened , but open well. There is mild tricuspid regurgitation.RVSP-33 mmof hg. There is no tricuspid valve stenosis. There is no tricuspid valve prolapse or vegetation. PULMONIC VALVE The pulmonic valve is mildly thickened. There is no pulmonic valvular regurgitation. There is no pulmonic valvular stenosis. GREAT VESSELS The aortic root is normal in size. The ascending aorta is normal in size. The pulmonary artery is normal. The IVC is normal in size and collapses >50% with inspiration. PERICARDIAL EFFUSION There is no pleural effusion. There is no pericardial effusion. <Conclusion> The left ventricle is normal size. There is normal left ventricular wall thickness. The left ventricular function is normal.Ef-65% There is trace aortic regurgitation. There is mild valvular aortic stenosis. Non coronary cusp is Immobile Mitral regurgitation is mild to moderate. There is mild tricuspid regurgitation.RVSP-33 mmof hg. The IVC is normal in size and collapses >50% with inspiration. There is no pericardial effusion.
--- NOTE | 2018-05-21 21:33 | HP ---
DATE OF EXAM: 05/21/2018 Patient was seen and examined at the bedside on 05/21/2018. CHIEF COMPLAINT: Chest pain. HISTORY OF PRESENT ILLNESS: Ms. Abeba Gaitan is a [id number] female with past medical history of hypertension, hypercholesterolemia, asthma and coronary artery disease with multiple cardiac stents, who came actually in my office with intractable chest pain and we sent patient to emergency room. Patient came to emergency room accompanied with her family and was complaining about headache also. Patient described that the chest discomfort is as a pressure like sensation, but not radiating. Patient reports that she checked her blood pressure and noted that it was elevated, so she went to see her primary care physician and from there she was sent to emergency room. We did cardiac enzymes, it is negative, seen by the energy administrator and information systems professor. Patient was also little bit panicky and having shortness of breath, but no diarrhea, no urinary symptoms and no dizziness. PAST MEDICAL HISTORY: COPD, asthma, cataract, glaucoma; anemia, status post blood transfusion. FAMILY HISTORY: Father and mother noncontributory. HABITS: Never smoked. No drugs, no ethanol. ALLERGIES: PATIENT IS ALLERGIC WITH IODINE AND SHRIMP. HOME MEDICATIONS: Aspirin, Singulair, simvastatin, Plavix. REVIEW OF SYSTEMS: Patient is seen and examined at the bedside, looking comfortable. No more chest pain. No pressure. No headache, no dizziness. No hematuria or hematochezia. Still coughing, having shortness of breath, but not much. PHYSICAL EXAMINATION VITAL SIGNS: Blood pressure 140/80, pulse 71, temperature 97.8, oxygen saturation 98% on room air. HEENT: Head normocephalic, atraumatic. Eyes PERRLA. Extraocular muscles intact. Conjunctiva clear. Nose patent. Mucous membranes moist. NECK: Supple. No carotid bruit, no thyromegaly. CHEST: Bilaterally symmetrical. HEART: S1, S2 positive. LUNGS: Clear to auscultation. ABDOMEN: Soft. Positive bowel sounds. No organomegaly. EXTREMITIES: No edema, no cyanosis. NEUROLOGIC: The patient is awake and alert. Moving all four extremities. No focal deficits. LABORATORY DATA: White blood cells 9.7, hemoglobin 12.7, hematocrit 39.4 and platelets 290. Sodium 141, potassium 4.2, BUN 35, creatinine 0.8. ASSESSMENT AND PLAN: Ms. Abeba Gaitan is a 72-year-old lady with history of chronic obstructive lung disease, coronary artery disease, history of coronary stents, hypertension, hypercholesterolemia, asthma, obstructive sleep apnea syndrome, came with chest pain like pressure and shortness of breath. Seen by energy administrator and information systems professor. According to Cardiology, she exhibited nonspecific chest pain. History of chronic obstructive pulmonary disease and asthma. Door Person discontinued the Symbicort, started on Brovana, Pulmicort. Cardiac enzymes done and gastrointestinal and deep venous thrombosis prophylaxis given. Waiting for input from the energy administrator and information systems professor. We will repeat labs and we will follow up. Patient has had labs, so patient had hypertriglyceridemia. Continue medications. Mary Roe MD ESE
[2018-05-21] MEDS ORDERED: Pantoprazole 40 mg EC Tab PO SCH (22:00)
[2018-05-21] MEDS ORDERED: Fluticasone Nasal 50 mcg/Spray NS SCH (22:00)
--- NOTE | 2018-05-22 01:40 | DS ---
HISTORY OF PRESENT ILLNESS: I saw the patient only one time during this admission that was 05/21/2018 and I did the history and physical with detail. The patient was seen by the assistant women's basketball coach and agronomy technician, cleared the patient. According to them, pain is like musculoskeletal. The patient will do follow up in my office. We will review medications. For more details, see my H and P. Mary Roe MD
[2018-05-22] MEDS ORDERED: Enoxaparin 40 mg Syringe SC SCH (10:00)
== END 2018-05-21 18:02 | disposition home or self-care (01) ==
LOC: ED 13:33 → ERH 15:18 → UNDOADMOB 15:30 → ERH 20:32 → 2RNO 21:22
PROVIDERS: ADMIT Internal Medicine; ATTEND Internal Medicine
DX: R07.89 Other chest pain (principal); R51 Headache; E78.00 Pure hypercholesterolemia, unspecified; E78.1 Pure hyperglyceridemia; G47.33 Obstructive sleep apnea (adult) (pediatric); J44.9 Chronic obstructive pulmonary disease, unspecified; I10 Essential (primary) hypertension; I25.10 Atherosclerotic heart disease of native coronary artery without angina pectoris; H40.9 Unspecified glaucoma; E78.5 Hyperlipidemia, unspecified; Z79.82 Long term (current) use of aspirin; Z95.5 Presence of coronary angioplasty implant and graft; Z79.51 Long term (current) use of inhaled steroids; Z79.02 Long term (current) use of antithrombotics/antiplatelets
CPT/HCPCS: 36415; 71045; 80048; 80053; 80061; 82550; 82607; 82746; 83036; 83540; 83550; 83615; 83735; 83880; 84443; 84484; 85025; 85027; 93005; 93306; 99285; G0378